=== PATIENT | male | born 1990 | race Caucasian/White ===

== ENCOUNTER 2023-11-13 12:41 | Emergency (ER) | payer OTHER ==
[2023-11-13 13:05] LABS: BASO # 0.01 K/mm3 (0.02-0.10); EOS # 0.13 K/mm3 (0.04-0.40); EOS % 1.1 % (0.0-4.0); HEMATOCRIT 45.7 % (42.0-52.0); HEMOGLOBIN 15.1 g/dL (13.5-18.0); LYMPH# 1.88 K/mm3 (1.50-4.00); MEAN CELL VOLUME 90 fl (78-100); MEAN CORPUSCULAR HEMOGLOBIN 30 pg (27-31); MEAN CORPUSCULAR HGB CONC 33 g/dL (33-37); MEAN PLATELET VOLUME 9.8 fl (7.4-10.4); MONO # 0.93 K/mm3 (0.20-0.80); NEU # 8.94 K/mm3 (1.40-6.50); PLATELET COUNT 241 K/mm3 (130-400); RED CELL DISTRIBUTION WIDTH 12.5 % (11.5-14.5); WHITE BLOOD COUNT 11.9 K/mm3 (4.8-10.8)
[2023-11-13 13:12] LABS: ALBUMIN 4.3 g/dL (3.5-5.0); SODIUM 140 mmol/L (136-145)
[2023-11-13 13:13] LABS: CALCIUM 9.4 mg/dL (8.3-10.5)
[2023-11-13 13:15] LABS: GLUCOSE 120 mg/dL (75-110); TOTAL PROTEIN 7.3 g/dL (6.4-8.3)
[2023-11-13 13:16] LABS: CARBON DIOXIDE 22 mmol/L (22-29); TOTAL BILIRUBIN 0.6 mg/dL (0.2-1.2)
[2023-11-13 13:20] LABS: AST-SGOT 27 U/L (5-34)
[2023-11-13 13:21] LABS: ALT/SGPT 46 U/L (0-55)
[2023-11-13 13:28] LABS: TROPONIN-I < 0.030 ng/mL (0.00-0.033)
[2023-11-13] MEDS ORDERED: NS 1,000 ML IV SCH (13:30)
[2023-11-13 13:51] LABS: D-DIMER 1.03 mg/L FEU (0.15-0.50)
[2023-11-13 14:36] LABS: URINE APPEARANCE SLIGHTLY CLOUDY (CLEAR); URINE BILIRUBIN 1+ (NEGATIVE); URINE BLOOD NEGATIVE (NEGATIVE); URINE COLOR YELLOW (YELLOW); URINE GLUCOSE NEGATIVE (NEGATIVE); URINE KETONE TRACE (NEGATIVE); URINE LEUKOCYTE ESTERASE NEGATIVE (NEGATIVE); URINE NITRATE NEGATIVE (NEGATIVE); URINE PROTEIN(semi-quant) 1+ (NEGATIVE)
[2023-11-13] MEDS ORDERED: Iohexol 350 - 100 ML VIAL IV ONE (15:35)
[2023-11-13 16:46] VITALS: BP 125/82
== END 2023-11-13 16:46 | disposition home or self-care (01) ==
LOC: ED 12:41
PROVIDERS: Physician Assistant
DX: S52.502A Unspecified fracture of the lower end of left radius, initial encounter for closed fracture (principal); R00.0 Tachycardia, unspecified; F15.10 Other stimulant abuse, uncomplicated; Z88.8 Allergy status to other drugs, medicaments and biological substances; W22.09XA Striking against other stationary object, initial encounter
CPT/HCPCS: J7030; Q9967